=== PATIENT | female | born 1980 | race Caucasian/White ===

== ENCOUNTER 2017-08-31 12:21 | Emergency (ER) | payer OTHER ==
[2017-08-31 12:45] VITALS: BP 126/84
--- NOTE | 2017-08-31 13:37 | UC ---
Lower Extremity/Ankle HPI - HPI Summary HPI Summary: Patient is a 37-year-old obese woman presenting to the ED with pain to the medial/posterior right lower leg. She endorses travel one week ago, the pain began immediately yesterday and has remained constant. The pain is a stabbing, dull ache which is intermittent. Worse with ambulation, better with rest. She states she has had an ingrown hair in the area for quite some time, several years, but this is no different than it normally is. There is no erythema or warmth to the area. She denies any shortness of breath. Denies any control, denies smoking history. - History of Current Complaint Chief Complaint: UCLowerExtremity Stated Complaint: LEG PAIN Time Seen by Provider: 08/31/17 12:29 Hx Obtained From: Patient Hx Last Menstrual Period: 08/30/2017 ?: No Onset/Duration: Sudden Onset Severity Initially: Mild Severity Currently: Mild Pain Intensity: 1 Pain Scale Used: 0-10 Numeric Aggravating Factor(s): Standing, Ambulation Alleviating Factor(s): Rest Able to Bear Weight: No - Risk Factors Gout Risk Factors: Negative DVT Risk Factors: Recent Travel Septic Arthritis Risk Factor: Negative - Allergies/Home Medications Allergies/Adverse Reactions: Allergies Allergy/AdvReac Type Severity Reaction Status Date / Time Penicillins Allergy Hives Verified 08/31/17 12:37 Home Medications: Home Medications Metformin HCl [Fortamet] 500 mg PO DAILY 08/31/17 [History Confirmed 08/31/17] Spironolactone 25 mg PO DAILY 08/31/17 [History Confirmed 08/31/17] PMH/Surg Hx/FS Hx/Imm Hx Previously Healthy: Yes - Surgical History Surgical History: None - Social History Occupation: Employed Full-time Alcohol Use: None Substance Use Type: None Smoking Status (MU): Never Smoked Tobacco Review of Systems Constitutional: Negative Skin: Negative Respiratory: Negative Cardiovascular: Negative Motor: Negative Neurovascular: Negative Musculoskeletal: Arthralgia Neurological: Negative Is Patient Immunocompromised?: No All Other Systems Reviewed And Are Negative: Yes Physical Exam Triage Information Reviewed: Yes Appearance: Well-Appearing, Well-Nourished Vital Signs: Initial Vital Signs Temp 98.6 F 08/31/17 12:36 Pulse 88 08/31/17 12:36 Resp 18 08/31/17 12:36 BP 126/84 08/31/17 12:36 Pulse Ox 96 08/31/17 12:36 Vital Signs Reviewed: Yes Eye Exam: Normal Eyes: Positive: Conjunctiva Clear Neck exam: Normal Neck: Positive: Supple Respiratory Exam: Normal Respiratory: Positive: Chest non-tender, Lungs clear Cardiovascular Exam: Normal Cardiovascular: Positive: RRR Musculoskeletal: Positive: No Edema Neurological Exam: Normal Neurological: Positive: Alert Psychological Exam: Normal Psychological: Positive: Normal Response To Family Skin Exam: Normal Diagnostics - Radiology No standard instances Xray Interpretation: No Acute Changes Radiology Interpretation Completed By: Radiologist - No evidence of DVT Lower Extremity Course/Dx - Course Course Of Treatment: Patient was able to call her physician who recommended she come to rule out a DVT based on her symptoms. Ultrasound ordered. There is no erythema or warmth to the area. Ultrasound shows no evidence of DVT. To patient this is likely a muscular strain versus muscle cramp. I have advised she take ibuprofen 600 mg 3 times a day, moist heat to the area and if she sustained any worsening leg cramps specifically at bedtime she is to take magnesium glycinate 400 mg. She is okay with this plan and discharged. She'll follow back up with her PCP. - Differential Dx/Diagnosis Provider Diagnoses: Muscle Cramp Discharge - Sign-Out/Discharge Documenting (check all that apply): Discharge - Discharge Plan Condition: Stable Disposition: HOME Patient Education Materials: Musculoskeletal Pain (ED) Referrals: Domi Carballo MD [Primary Care Provider] - Additional Instructions: Moist heat to the area Ibuprofen 600 mg 3 times daily Please follow-up with your PCP - Billing Disposition and Condition Condition: STABLE Disposition: HOME
--- NOTE | 2017-08-31 14:13 | RAD ---
HISTORY: Right calf pain COMPARISONS: None relevant TECHNIQUE: Multiple transverse and longitudinal ultrasound images were obtained of the right lower extremity from the level of the common femoral vein inferiorly through to the infrapopliteal veins using grayscale, color Doppler, and spectral Doppler imaging with and without compression and with augmentation. Comparison images were obtained of the contralateral common femoral vein. FINDINGS: VEINS: The venous system of the right lower extremity is compressible throughout its course, with normal flow on color Doppler imaging and normal response to augmentation on spectral Doppler imaging. SOFT TISSUES: Unremarkable. OTHER FINDINGS: None. IMPRESSION: NO RIGHT LOWER EXTREMITY DEEP VEIN THROMBOSIS
== END 2017-08-31 14:29 | disposition home or self-care (01) ==
LOC: UCEAST 12:21
DX: R25.2 Cramp and spasm (principal); Z88.0 Allergy status to penicillin
CPT/HCPCS: 99201; G0463